=== PATIENT | female | born 1960 | race Hispanic/Latino ===

== ENCOUNTER 2021-04-18 20:02 | Emergency (ER) | payer SELFPAY ==
[~2021-04-18] VITALS: Ht 149.9 cm; Wt 68.9 kg
[2021-04-18] MEDS ORDERED: CYCLOBENZAPRINE HCL 10 MG TABLET PO ONE (21:00)
[2021-04-18] MEDS ORDERED: HYDROCODONE/ACETAMINOPHEN 10/325 MG TAB PO ONE (21:00)
[2021-04-18] MEDS ORDERED: CYCL10 PO (21:42)
[2021-04-18] MEDS ORDERED: ACET1TAB25 PO (21:42)
[2021-04-18 21:55] VITALS: BP 170/86
== END 2021-04-18 21:56 | disposition home or self-care (01) ==
LOC: EDH 20:02 → EDSEX 20:02 → EDH 21:56
DX: S39.012A Strain of muscle, fascia and tendon of lower back, initial encounter (principal); F41.9 Anxiety disorder, unspecified; E11.9 Type 2 diabetes mellitus without complications; E78.00 Pure hypercholesterolemia, unspecified; I10 Essential (primary) hypertension; E03.9 Hypothyroidism, unspecified; Z79.899 Other long term (current) drug therapy; W01.0XXA Fall on same level from slipping, tripping and stumbling without subsequent striking against object, initial encounter; Y93.89 Activity, other specified; Y92.89 Other specified places as the place of occurrence of the external cause; Y99.8 Other external cause status
CPT/HCPCS: 72100; 72220